=== PATIENT | male | born 1990 | race African-American/Black ===

== ENCOUNTER 2024-11-23 22:49 | Inpatient (IN) | payer BC, MEDICAID ==
[~2024-11-23] VITALS: Ht 172.7 cm; Wt 79.4 kg
[2024-11-23] MEDS: methylPREDNISolone SOD SUCC 40 MG/ML VIAL IV ONE (22:38)
[2024-11-23] MEDS: EPINEPHRINE 1 MG/1 ML 30 ML VIAL IM ONE (22:38)
[2024-11-23] MEDS: FAMOTIDINE. 20 MG/2 ML VIAL IV ONE (22:39)
[2024-11-23] MEDS: diphenhydrAMINE 50 MG/1 ML VIAL IV ONE (22:40)
[~2024-11-23 22:49] MED LIST: FAMOTIDINE. 20 MG/2 ML VIAL IV ONE; diphenhydrAMINE 50 MG/1 ML VIAL ONE; methylPREDNISolone SOD SUCC 125 MG/2 ML VIAL ONE
[2024-11-23 22:58] LABS: BASOPHILS % (AUTO) 0.3 % (0.0-2.0); EOSINOPHILS # (AUTO) 0.2 K/uL (0.0-0.7); EOSINOPHILS % (AUTO) 2.4 % (0.0-7.0); HEMATOCRIT 41.3 % (36.7-47.1); HEMOGLOBIN 13.3 g/dL (12.5-16.3); LYMPHOCYTES # (AUTO) 4.1 K/uL (0.8-4.8); LYMPHOCYTES % (AUTO) 63.8 % (20.5-51.5); MEAN CORPUSCULAR HEMOGLOBIN 23.6 uug (23.8-33.4); MEAN CORPUSCULAR HGB CONC 32 g/dL (32.5-36.3); MEAN CORPUSCULAR VOLUME 73.1 fL (73.0-96.2); MONOCYTES # (AUTO) 0.2 K/uL (0.1-1.30); MONOCYTES % (AUTO) 3.8 % (0.0-11.0); NEUTROPHILS # (AUTO) 1.9 K/uL (1.8-8.9); NEUTROPHILS % (AUTO) 29.7 % (38.5-71.5); PLATELET COUNT (AUTO) 233 K/uL (152-348); RED BLOOD CELL COUNT(AUTO) 5.66 MIL/uL (4.06-5.63); RED CELL DISTRIBUTION WIDTH 15.2 % (12.1-16.2); WHITE BLOOD COUNT (AUTO) 6.4 K/uL (3.6-10.2)
[2024-11-23 22:59] LABS: DIFFERENTIAL COMMENT 1
[2024-11-23 23:09] LABS: CALCIUM 9.1 mg/dL (8.5-10.1); CREATININE 1.3 mg/dL (0.6-1.3)
[2024-11-23 23:15] LABS: ALBUMIN 3.9 g/dL (3.4-5.0); BILIRUBIN,TOTAL 0.5 mg/dL (0.2-1.0)
[2024-11-23 23:53] LABS: EOSINOPHILS % (MANUAL) 3 % (0-8); LYMPHOCYTES % (MANUAL) 62 % (20-40); MONOCYTES % (MANUAL) 4 % (2-10); NEUTROPHILS % (MANUAL) 31 % (42-75); PLATELET ESTIMATE ADEQUATE
[2024-11-23 23:54] LABS: ANISOCYTOSIS 1+; HYPOCHROMASIA 1+
[2024-11-24] MEDS: POTASSIUM CHLORIDE 20 MEQ TAB.PRT.SR PO ONE (00:29)
[2024-11-24] MEDS ORDERED: MAGNESIUM HYDROXIDE 30 ML LIQUID UDC PO PRN (02:45)
[2024-11-24] MEDS ORDERED: diphenhydrAMINE 50 MG/1 ML VIAL IV PRN (02:45)
[2024-11-24] MEDS ORDERED: ACETAMINOPHEN 325 MG TABLET PO PRN (02:45)
[2024-11-24] MEDS ORDERED: REMEDY ESSENTIAL ZINC PASTE 113 GM TP PRN (02:45)
[2024-11-24] MEDS ORDERED: ONDANSETRON 4 MG/2 ML VIAL IV PRN (02:45)
[2024-11-24 04:00] VITALS: BP 118/60; TEMP 97.9; O2SAT 96
[2024-11-24] MEDS: IV 1/2NS 1000 ML 1,000 ML IV SCH (04:53)
[2024-11-24] MEDS: methylPREDNISolone SOD SUCC 40 MG/ML VIAL IV SCH (06:24)
[2024-11-24 07:19] LABS: BASOPHILS % (AUTO) 0.2 % (0.0-2.0); EOSINOPHILS % (AUTO) 0.1 % (0.0-7.0); HEMATOCRIT 39.8 % (36.7-47.1); HEMOGLOBIN 13.1 g/dL (12.5-16.3); LYMPHOCYTES # (AUTO) 0.5 K/uL (0.8-4.8); LYMPHOCYTES % (AUTO) 7.5 % (20.5-51.5); MEAN CORPUSCULAR HEMOGLOBIN 23.8 uug (23.8-33.4); MEAN CORPUSCULAR HGB CONC 33 g/dL (32.5-36.3); MEAN CORPUSCULAR VOLUME 72.3 fL (73.0-96.2); MONOCYTES # (AUTO) 0.1 K/uL (0.1-1.30); MONOCYTES % (AUTO) 0.9 % (0.0-11.0); NEUTROPHILS # (AUTO) 5.9 K/uL (1.8-8.9); NEUTROPHILS % (AUTO) 91.3 % (38.5-71.5); PLATELET COUNT (AUTO) 229 K/uL (152-348); RED CELL DISTRIBUTION WIDTH 15.4 % (12.1-16.2); WHITE BLOOD COUNT (AUTO) 6.4 K/uL (3.6-10.2)
[2024-11-24 07:29] LABS: DIFFERENTIAL COMMENT 1
[2024-11-24 07:39] LABS: CALCIUM 9.3 mg/dL (8.5-10.1); CREATININE 1.2 mg/dL (0.6-1.3); PHOSPHOROUS 3.5 mg/dL (2.5-4.9); POTASSIUM 4.7 mmol/L (3.5-5.1)
[2024-11-24 07:54] VITALS: BP 117/66; TEMP 97.9; O2SAT 100
[2024-11-24] MEDS: FAMOTIDINE. 20 MG/2 ML VIAL IV SCH (08:47)
[2024-11-24 11:18] VITALS: BP 98/73; TEMP 98.4; O2SAT 100
== END 2024-11-24 13:30 | disposition home or self-care (01) | DRG 811 ==
LOC: ER 22:49 → TELE3 11-24 02:10
PROVIDERS: ATTEND Internal Medicine
DX: T78.05XA Anaphylactic reaction due to tree nuts and seeds, initial encounter (principal); E87.6 Hypokalemia; T78.3XXA Angioneurotic edema, initial encounter; Z91.018 Allergy to other foods
CPT/HCPCS: 36415; 71045; 83735; 84100; 84484; 85025; A4606; A4663; G0378; J0171; J1200; J1308; J2919